=== PATIENT | female | born 1985 | race African-American/Black ===

== ENCOUNTER 2017-11-15 14:50 | Emergency (ER) | payer OTHER ==
[~2017-11-15] VITALS: Ht 157.5 cm; Wt 59.0 kg
--- NOTE | 2017-11-15 15:00 | NUR ---
AAOX3, C/O NAUSEA, VOMITING AND DIARRHEA SINCE YESTERDAY. SKIN IS WARM AND DRY. DR WALKER AT FOR EVAL.
[2017-11-15] MEDS ORDERED: ONDANSETRON HCL/PF 4 MG/2 ML VIAL ONE (15:14)
[2017-11-15 15:17] LABS: BASOPHILS % (AUTO) 0.6 % (0.0-2.0); EOSINOPHILS # (AUTO) 0.1 /CMM (0.0-0.7); EOSINOPHILS % (AUTO) 3.4 % (0.0-6.0); HEMATOCRIT 48 % (33-45); HEMOGLOBIN 16.3 g/dL (11.5-14.8); LYMPHOCYTES # (AUTO) 1.3 /CMM (0.8-4.8); LYMPHOCYTES % (AUTO) 34.5 % (20.0-44.0); MEAN CORPUSCULAR HEMOGLOBIN 30 PG (26.0-33.0); MEAN CORPUSCULAR HGB CONC 34 g/dl (31.0-36.0); MEAN CORPUSCULAR VOLUME 87 fL (82-100); MONOCYTES # (AUTO) 0.5 /CMM (0.1-1.30); MONOCYTES % (AUTO) 12.6 % (2.0-12.0); NEUTROPHILS # (AUTO) 1.9 /CMM (1.8-8.9); NEUTROPHILS % (AUTO) 48.9 % (43.0-81.0); PLATELET COUNT (AUTO) 276 /CMM (150-450); RDW COEFFICIENT OF VARIATION 11.8 (11.5-15.0); RED BLOOD CELL COUNT(AUTO) 5.52 MIL/uL (4.0-5.2); WHITE BLOOD COUNT (AUTO) 3.9 K/uL (4.3-11.0)
[2017-11-15 15:26] LABS: CALCIUM, SERUM 8.9 mg/dL (8.5-10.1); CREATININE 0.9 mg/dL (0.6-1.3)
[2017-11-15] MEDS ORDERED: IV NS 0.9% 1,000 ML BAG IV ONE (15:30)
[2017-11-15] MEDS ORDERED: ONDANSETRON HCL/PF 4 MG/2 ML VIAL IVP ONE (15:30)
[2017-11-15 15:58] LABS: BAND % (MANUAL) 1 % (0.0-5.0); EOSINOPHILS % (MANUAL) 1 % (0-4); LYMPHOCYTES % (MANUAL) 35 % (16-48); MONOCYTES % (MANUAL) 11 % (0-11.0); NEUTROPHILS % (MANUAL) 49 (42-76); REACTIVE LYMPHOCYTES 3 % (0-0)
--- NOTE | 2017-11-15 16:40 | NUR ---
PO CHALLENGE TOLERATED.
--- NOTE | 2017-11-15 16:51 | NUR ---
IV removed. Catheter intact and site benign. Pressure and 4x4 applied to site. No bleeding noted.Patient discharged to home in stable condition. Written and verbal after care instructions given. Patient verbalizes understanding of instruction.
[2017-11-15 16:53] VITALS: BP 108/70
== END 2017-11-15 16:54 | disposition home or self-care (01) ==
LOC: ER 14:54
DX: R11.2 Nausea with vomiting, unspecified (principal); R19.7 Diarrhea, unspecified
CPT/HCPCS: 36415; 80048; 84703; 85025; 96361; 96374; 99284; A4606; J2405; J7030; Z7610

== ENCOUNTER 2019-10-03 19:25 | Emergency (ER) | payer OTHER ==
[~2019-10-03] VITALS: Ht 157.5 cm; Wt 56.7 kg
[2019-10-03 19:48] VITALS: BP 105/62
== END 2019-10-03 20:09 | disposition home or self-care (01) ==
LOC: ER 19:28
DX: H10.13 Acute atopic conjunctivitis, bilateral (principal); Z98.890 Other specified postprocedural states

== ENCOUNTER 2019-10-14 09:17 | Emergency (ER) | payer OTHER ==
[~2019-10-14] VITALS: Ht 157.5 cm; Wt 56.7 kg
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
--- NOTE | 2019-10-14 09:34 | NUR ---
DR WALKER AT BEDSIDE
[2019-10-14] MEDS ORDERED: IBUPROFEN 600 MG TABLET PO ONE ×2 (09:37→10:00)
--- NOTE | 2019-10-14 10:17 | NUR ---
Patient discharged to home in stable condition. Written and verbal after care instructions given. Patient verbalizes understanding of instruction.
[2019-10-14 10:20] VITALS: BP 132/84
== END 2019-10-14 10:20 | disposition home or self-care (01) ==
LOC: ER 09:17
DX: M54.2 Cervicalgia (principal); Z98.890 Other specified postprocedural states; V49.49XA Driver injured in collision with other motor vehicles in traffic accident, initial encounter; Y93.89 Activity, other specified; Y92.488 Other paved roadways as the place of occurrence of the external cause; Y99.8 Other external cause status

== ENCOUNTER 2020-06-25 14:22 | Emergency (ER) | payer OTHER ==
[~2020-06-25] VITALS: Ht 157.5 cm; Wt 56.7 kg
--- NOTE | 2020-06-25 15:00 | NUR ---
BIBS FROM HOME TO ER BED 5. AAOX4. NOT IN RESP DISTRESS, BREATHING EVENA DN UNLABORED. CAME IN FOR FEELING SICK FOR THE PAST WEEK. PT REPORTS THAT SHE IS HAVING HEADACHE, BODY ACHE AND CHILLS, ABDOMINAL PAIN AND FEVER. ORAL TEMP NOTED 100.1. MD WAS AT THE BEDSIDE FOR EVAL. ORDERS RECEIVED NOTED AND CARRIED OUT.
[2020-06-25 15:31] LABS: BASOPHILS # (AUTO) 0.1 /CMM (0.0-0.2); BASOPHILS % (AUTO) 0.8 % (0.0-2.0); EOSINOPHILS % (AUTO) 0.4 % (0.0-6.0); HEMATOCRIT 45 % (33-45); HEMOGLOBIN 14.7 g/dL (11.5-14.8); LYMPHOCYTES # (AUTO) 1.2 /CMM (0.8-4.8); LYMPHOCYTES % (AUTO) 16.6 % (20.0-44.0); MEAN CORPUSCULAR HGB CONC 33 g/dl (31.0-36.0); MEAN CORPUSCULAR VOLUME 88 fL (82-100); MONOCYTES # (AUTO) 0.5 /CMM (0.1-1.30); MONOCYTES % (AUTO) 6.6 % (2.0-12.0); NEUTROPHILS # (AUTO) 5.3 /CMM (1.8-8.9); NEUTROPHILS % (AUTO) 75.6 % (43.0-81.0); PLATELET COUNT (AUTO) 368 /CMM (150-450); RED BLOOD CELL COUNT(AUTO) 5.08 MIL/uL (4.0-5.2)
[2020-06-25 15:48] LABS: CALCIUM, SERUM 9.5 mg/dL (8.5-10.1); CREATININE 0.9 mg/dL (0.6-1.3); POTASSIUM 3.7 mmol/L (3.5-5.1)
[2020-06-25 15:55] LABS: ALBUMIN 4.1 g/dL (3.4-5.0); BILIRUBIN,TOTAL 0.7 mg/dL (0.2-1.0); TOTAL PROTEIN, SERUM 9.8 g/dL (6.4-8.2)
[2020-06-25] MEDS ORDERED: HYDROCODONE/APAP 5/325MG TABLET PO ONE (16:00)
[2020-06-25] MEDS ORDERED: CT SWABBABLE VALVE TRANS SET 1 EA INFUS.SET MC ONE (16:16)
[2020-06-25] MEDS ORDERED: IOHEXOL-350 100 ML VIAL IV ONE (16:16)
[2020-06-25] MEDS ORDERED: IV NS 0.9% 250 ML IV ONE (16:16)
[2020-06-25 16:29] LABS: APPEARANCE,URINE Clear (CLEAR); BILIRUBIN,URINE Negative (NEGATIVE); BLOOD, URINE Trace-lysed Ery/uL (NEGATIVE); COLOR,URINE Yellow (YELLOW); KETONES,URINE Negative (NEGATIVE); LEUKOCYTE ESTERASE ,URINE Negative (NEGATIVE); NITRITE, URINE Negative (NEGATIVE); PH,URINE 7.5 (5.0-8.0); PROTEIN,URINE Negative (NEGATIVE); UGLUCOSE Negative (NEGATIVE)
[2020-06-25] MEDS ORDERED: HYDROCODONE/APAP 5/325MG TABLET ONE (16:29)
[2020-06-25 16:31] LABS: C-REACTIVE PROTEIN 20.9 mg/dL (0.0-0.9)
--- NOTE | 2020-06-25 16:32 | NUR ---
RADIOLOGY TECHG REPORTED THAT IV INFILTRATED WHILE DOING PROCEDURE. PT IS NOTED IS SWELLING ON THE BRITT. PT DENIES PAIN.
--- NOTE | 2020-06-25 16:32 | NUR ---
PT BACK FROM CT ON WHEELCHAIR
[2020-06-25 17:00] LABS: BACTERIA,URINE Few /HPF (None Seen); RBC,URINE 0-2 /HPF (0-2); SQUAMOUS EPITHELIAL CELL,UR Moderate /HPF (None Seen); WBC,URINE 0-2 /HPF (0-3)
[2020-06-25] MEDS ORDERED: AZITHROMYCIN 250 MG TABLET PO ONE (18:30)
[2020-06-25] MEDS ORDERED: CEFTRIAXONE 1GM BAG (ER ONLY) 1 GM/50 ML PIGGYBACK IV ONE (18:30)
--- NOTE | 2020-06-25 18:53 | NUR ---
FLU SWAB DONE AND SENT TO LAB
[2020-06-25] MEDS ORDERED: AZITHROMYCIN 250 MG TABLET ONE (18:57)
--- NOTE | 2020-06-25 19:14 | NUR ---
RAC 20G IV DISCONTINUED AND NEW IV LINE ESTABLISHED ON L HAND 22G.
--- NOTE | 2020-06-25 19:58 | NUR ---
JOSE SAN TALKING TO KRISTINA HATCH MD OVER THE PHONE
--- NOTE | 2020-06-25 22:25 | NUR ---
PT ACCEPTED TO [facility] BY DR VAZQUEZ. [id number]. # FOR REPORT [phone]. [facility] ETA 30 MINUTES.
[2020-06-25 22:42] VITALS: BP 106/63
--- NOTE | 2020-06-25 22:52 | NUR ---
[facility] 313 AT BEDSIDE FOR PT TRANSPORT TO [facility]. NAD NOTED. PT IS IN STABLE CONDITION FOR TRANSPORT. REPORT GIVEN TO AMBULANCE STAFF WELL
--- NOTE | 2020-06-25 22:52 | NUR ---
REPORT GIVEN TO ESTEFANIA BRYAN AT THE [facility].
--- NOTE | 2020-06-25 23:00 | NUR ---
PT LEFT ON GURNEY WITH 2 AMBULANCE STAFF ON STABLE CONDITION. NAD NOTED
== END 2020-06-25 23:08 | disposition short-term general hospital (02) ==
LOC: ER 14:32
DX: J91.8 Pleural effusion in other conditions classified elsewhere (principal); J18.1 Lobar pneumonia, unspecified organism; R19.7 Diarrhea, unspecified; R07.89 Other chest pain; R06.02 Shortness of breath; Z20.828 Contact with and (suspected) exposure to other viral communicable diseases
CPT/HCPCS: 36415; 71045; 71275; 80053; 81001; 84145; 84702; 85025; 86140; 87081; 87086; 87426; 87804; 96365; 99285; C9803 ×2; J0696; J7050; Q9967; U0003; 81000-TC

== ENCOUNTER 2023-01-12 09:40 | Emergency (ER) | payer OTHER ==
[~2023-01-12] VITALS: Ht 157.5 cm; Wt 54.4 kg
[2023-01-12 09:46] VITALS: BP 132/98
--- NOTE | 2023-01-12 09:46 | NUR ---
C/O LEFT MIDDLE FINGER SWELLING AND PAIN X 2 WEEKS. PT DENIES TRAUMA. PAIN 5/10 ON PAIN SCALE.
[2023-01-12] MEDS ORDERED: SULF1TAB48 PO (10:11)
--- NOTE | 2023-01-12 10:22 | NUR ---
Patient discharged to home in stable condition. Written and verbal after care instructions given. Patient verbalizes understanding of instruction.
== END 2023-01-12 10:22 | disposition home or self-care (01) ==
LOC: ER 09:43
DX: L03.012 Cellulitis of left finger (principal); Z98.890 Other specified postprocedural states; Z79.899 Other long term (current) drug therapy

== ENCOUNTER 2023-01-19 01:05 | Emergency (ER) | payer OTHER ==
[~2023-01-19] VITALS: Ht 157.5 cm; Wt 54.4 kg
[~2023-01-19 01:05] MED LIST: SULF1TAB48 PO
--- NOTE | 2023-01-19 01:19 | NUR ---
BIBS FOR ONGOING L MIDDLE FINGER INFECTION. COMPLETED A DOSE OF BACTRIM DS. PATIENT PLACED COMFORTABLY IN BED, VITALS CHECKED.
[2023-01-19] MEDS ORDERED: LIDOCAINE 2% JEL UROJET 10 ML MM ONE (02:04)
--- NOTE | 2023-01-19 02:09 | NUR ---
AT BED SIDE FOR I&D
[2023-01-19] MEDS ORDERED: IBUPROFEN 600 MG TABLET ONE ×2 (02:28→02:32)
[2023-01-19] MEDS ORDERED: CLINDAMYCIN HCL 150 MG CAPSULE ONE ×2 (02:28→02:32)
[2023-01-19] MEDS ORDERED: IBUPROFEN 600 MG TABLET PO ONE (02:30)
[2023-01-19] MEDS ORDERED: CLINDAMYCIN HCL 150 MG CAPSULE PO ONE (02:30)
[2023-01-19] MEDS ORDERED: CLIN300C12 PO (02:44)
--- NOTE | 2023-01-19 02:48 | NUR ---
Patient discharged to home in stable condition. Written and verbal after care instructions given. Patient verbalizes understanding of instruction.
[2023-01-19 02:49] VITALS: BP 123/78
== END 2023-01-19 02:51 | disposition home or self-care (01) ==
LOC: ER 01:06
DX: L03.012 Cellulitis of left finger (principal)
CPT/HCPCS: 99283; 10060; J3490

== ENCOUNTER 2025-07-27 09:16 | Emergency (ER) | payer MEDICAID, OTHER ==
[~2025-07-27] VITALS: Ht 177.8 cm; Wt 54.4 kg
[~2025-07-27 09:16] MED LIST changes: +CLIN300C12 PO
[2025-07-27] MEDS ORDERED: IBUP-1490 PO (10:42)
[2025-07-27 10:49] VITALS: BP 122/65; TEMP 98.3; O2SAT 99
== END 2025-07-27 10:50 | disposition home or self-care (01) ==
LOC: ER 09:27
DX: H11.001 Unspecified pterygium of right eye (principal); R51.9 Headache, unspecified
CPT/HCPCS: 70450-TC

== ENCOUNTER 2025-09-11 08:27 | Emergency (ER) | payer MEDICAID, OTHER ==
[~2025-09-11] VITALS: Ht 157.5 cm; Wt 54.4 kg
[~2025-09-11 08:27] MED LIST changes: +IBUP-1490 PO
[2025-09-11 08:39] VITALS: BP 113/62; TEMP 98.3
[2025-09-11] MEDS ORDERED: CEPHALEXIN MONOHYDRATE 500 MG CAPSULE PO ONE (09:01)
[2025-09-11] MEDS ORDERED: IBUPROFEN 600 MG TABLET ONE (09:01)
[2025-09-11] MEDS: CEPHALEXIN MONOHYDRATE 500 MG CAPSULE PO ONE (09:02)
[2025-09-11] MEDS: IBUPROFEN 600 MG TABLET PO ONE (09:02)
[2025-09-11] MEDS ORDERED: CEPH-570 PO (09:14)
[2025-09-11 09:21] VITALS: O2SAT 99
== END 2025-09-11 09:21 | disposition home or self-care (01) ==
LOC: ER 08:50
DX: L03.011 Cellulitis of right finger (principal)

== ENCOUNTER 2025-09-13 09:47 | Emergency (ER) | payer OTHER ==
[~2025-09-13] VITALS: Ht 157.5 cm; Wt 54.4 kg
[~2025-09-13 09:47] MED LIST changes: +CEPH-570 PO
[2025-09-13 09:57] VITALS: BP 128/83; TEMP 98.1
[2025-09-13] MEDS ORDERED: LET SOLN TOPICAL 8 ML UDC TP ONE (10:16)
[2025-09-13] MEDS: LET SOLN TOPICAL 8 ML UDC TP ONE (10:17)
[2025-09-13] MEDS ORDERED: MUPI1OIN5 TP (10:37)
[2025-09-13] MEDS ORDERED: SULF1TAB48 PO (10:37)
[2025-09-13 10:55] VITALS: O2SAT 98
== END 2025-09-13 10:56 | disposition home or self-care (01) ==
LOC: ER 09:50
DX: L03.011 Cellulitis of right finger (principal)
CPT/HCPCS: 99283; 10060; A6403